=== PATIENT | male | born 1975 | race Asian ===

== ENCOUNTER 2016-09-06 08:20 | Emergency (ER) | payer OTHER ==
[2016-09-06] MEDS ORDERED: PROPARACAINE 0.5% 15 ML OPHT DROP ONE (08:39)
[2016-09-06] MEDS ORDERED: FLUORESCEIN SODIUM 1 MG STRIP OP ONE (08:42)
--- NOTE | 2016-09-06 08:49 | EDPHY ---
H & P Stated Complaint: Left facial, neck swelling, seen at last week. Time Seen by Provider: 09/06/16 08:38 HPI/ROS: CHIEF COMPLAINT: Left facial pain and swelling HISTORY OF PRESENT ILLNESS: The patient is a 41-year-old man who presents to the emergency department complaining of pain and swelling in the left side of his face as well as a mild rash. He was seen 3 days ago at [facility] complaining of mild eye discharge and erythema. At the time no rashes present. He was diagnosed with a corneal abrasion and conjunctivitis. He was placed on antibiotic drops and Vicodin. He states that these have not been helping. He has not had a fever. His vision is intact 20/20 in both eyes. He has not had any hearing changes. Yesterday evening he developed a rash over his forehead and upper left cheek. He has continued to have clear discharge from his eye. REVIEW OF SYSTEMS: Constitutional: denies: chills, fever, recent illness, recent injury EENTM: See HPI Respiratory: denies: cough, shortness of breath Cardiac: denies: chest pain, irregular heart rate, lightheadedness, palpitations Gastrointestinal/Abdominal: denies: abdominal pain, diarrhea, nausea, vomiting, blood streaked stools Genitourinary: denies: dysuria, frequency, hematuria, pain Musculoskeletal: denies: joint pain, muscle pain Skin: denies: lesions, rash, jaundice, bruising Neurological: denies: headache, numbness, paresthesia, tingling, dizziness, weakness Hematologic/Lymphatic: denies: blood clots, easy bleeding, easy bruising Immunologic/allergic: denies: HIV/AIDS, transplant EXAM: GENERAL: Well-appearing, well-nourished and in no acute distress. HEAD: Atraumatic, normocephalic. EYES: Eyes stained with floricine. No visible dendritic ulcer, small punctate lesions, conjunctiva injection clear discharge ENT: No vesicle seen in the ears or on nose. NECK: Normal range of motion, supple without lymphadenopathy or JVD. LUNGS: Breath sounds clear to auscultation bilaterally and equal. No wheezes rales or rhonchi. HEART: Regular rate and rhythm without murmurs, rubs or gallops. ABDOMEN: Soft, nontender, normoactive bowel sounds. No guarding, no rebound. No masses appreciated. BACK: No CVA tenderness, no spinal tenderness, step-offs or deformities EXTREMITIES: Normal range of motion, no pitting or edema. No clubbing or cyanosis. NEUROLOGICAL: Cranial nerves II through XII grossly intact. Normal speech, normal gait. 5/5 strength, normal movement in all extremities, normal sensation PSYCH: Normal mood, normal affect. SKIN: Zoster type lesion to left forehead and upper cheek. Source: Patient Exam Limitations: No limitations - Medical/Surgical History Hx Asthma: No Hx Chronic Respiratory Disease: No Hx Diabetes: No Hx Cardiac Disease: No Hx Renal Disease: No Hx Cirrhosis: No Hx Alcoholism: No Hx HIV/AIDS: No Hx Splenectomy or Spleen Trauma: No Other PMH: chronic back pain - Family History Significant Family History: No pertinent family hx - Social History Smoking Status: Never smoked Alcohol Use: Sober Drug Use: None Constitutional: Initial Vital Signs Temperature (C) 36.6 C 09/06/16 08:22 Heart Rate 87 09/06/16 08:22 Blood Pressure 169/98 H 09/06/16 08:22 O2 Sat (%) 99 09/06/16 08:22 O2 Delivery Mode Room Air Allergies/Adverse Reactions: No Known Allergies Allergy (Unverified 09/04/16 10:54) Home Medications: Medication Instructions Recorded Ciprofloxacin [Ciloxan Opht Drops] 2 drops LEFTEYE QID 3 Days 09/04/16 Hydrocodone/APAP 5/325 [[place] 1 each PO Q4-6PRN PRN #14 tab 09/04/16 5/325 (*)] No Known Home Meds 09/04/16 Valacyclovir HCl [Valtrex] 1,000 mg PO TID #21 tab 09/06/16 oxyCODONE/APAP 5/325 [Percocet 1 - 2 tab PO Q4H PRN #20 tab 09/06/16 5/325 (*)] Medical Decision Making ED Course/Re-evaluation: Patient appears to have shingles involving his 7th cranial nerve. No visible lesions to the tip of his nose, ears or on cornea. He does have small punctate lesions on his cornea as well as conjunctiva injection. I have paged Ophthalmology for consultation and will start him on valacyclovir and likely steroids. He is already taking Vicodin. 9:15 a.m. I discussed the case with Dr. Eva Loyola from Ophthalmology. She recommends starting the patient on valacyclovir but does not recommend steroids. She will follow up with him in her office. Patient and family understand and agree with this plan. Differential Diagnosis: Partial list of the Differential diagnosis considered include but were not limited to; herpes zoster, herpes ophthalmicus, conjunctivitis, corneal abrasion and although unlikely based on the history and physical exam, I also considered allergic reaction, cellulitis. I discussed these differential diagnoses and the plan with the patient as well as the usual and expected course. The patient understands that the diagnosis is provisional and that in medicine we are not always correct and that further workup is often warranted. Usual and customary warnings were given. All of the patient's questions were answered. The patient was instructed to return to the emergency department should the symptoms at all worsen or return, otherwise to followup with the physician as we discussed. - Data Points Medications Given: Discontinued Medications Oxycodone/Acetaminophen (Percocet 5/325) 2 tab PO EDNOW ONE Stop: 09/06/16 09:14 Last Admin: 09/06/16 09:16 Dose: 2 tab Valacyclovir HCl (Valtrex) 1,000 mg PO EDNOW ONE Stop: 09/06/16 08:51 Last Admin: 09/06/16 09:12 Dose: 1,000 mg Departure - Departure Disposition: Home, Routine, Self-Care Clinical Impression: Herpes zoster Qualifiers: Herpes zoster complications: unspecified herpes zoster complication Qualifier Code: (B02.8) Zoster with other complications Condition: Fair Instructions: Shingles (ED) Additional Instructions: We spoke with Dr. Loyola over the phone. She would like to follow up with you in her office. You need to be careful that the infection does not involve your why. Take the antivirals and pain medications as we discussed. Referrals: DELILAH OSUNA [Primary Care Provider] - As per Instructions Eva Loyola MD [Non Staff Provider ()] - 1-2 days without fail Prescriptions: oxyCODONE/APAP 5/325 [Percocet 5/325 (*)] 1 - 2 tab PO Q4H PRN #20 tab PRN Reason: Pain, Severe Valacyclovir HCl [Valtrex] 1,000 mg PO TID #21 tab
[2016-09-06] MEDS ORDERED: valACYclovir 500 MG TAB PO ONE (08:50)
[2016-09-06] MEDS ORDERED: OXYCODONE/APAP 5/325 TAB PO ONE (09:13)
[2016-09-06 09:40] VITALS: BP 132/83; PULSE 78; TEMP 98.1; O2SAT 95
== END 2016-09-06 09:39 | disposition home or self-care (01) ==
DX: B02.8 Zoster with other complications (principal)

== ENCOUNTER 2018-01-08 20:52 | Emergency (ER) | payer OTHER ==
[2018-01-08] MEDS ORDERED: SKIN ADHESIVE (DERMABOND) 1 EACH TP ONE (21:02)
[2018-01-08 21:03] VITALS: BP 145/99
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
== END 2018-01-08 21:15 | disposition home or self-care (01) ==
LOC: CED 20:52
PROC: 09QKXZZ Repair Nasal Mucosa and Soft Tissue, External Approach (ICD-10-PCS; principal; 2018-01-08)
DX: S01.21XA Laceration without foreign body of nose, initial encounter (principal); S80.211A Abrasion, right knee, initial encounter; V97.32XA Injured by rotating propeller, initial encounter